=== PATIENT | female | born 1945 | race Caucasian/White ===

== ENCOUNTER 2017-07-09 10:42 | Emergency (ER) | payer MEDICARE ==
[~2017-07-09] VITALS: Ht 152.4 cm; Wt 75.0 kg
[2017-07-09 10:47] VITALS: BP 176/88; PULSE 100; RESP 16; TEMP 98; O2SAT 100
[2017-07-09] MEDS ORDERED: LOVA10TA PO (11:20)
--- NOTE | 2017-07-09 11:27 | PD ---
HPI Chief Complaint: Fall Time Seen by Provider: 11:10 Travel History International Travel<30 days: No Contact w/Intl Traveler<30days: No Traveled to known affect area: No History of Present Illness HPI This 72-year-old female says that she had a fall yesterday. She was walking and quite abruptly ended up on the ground. She does not think she had a syncopal episode. She does not think she had a seizure. He was able to get up and continue walking but she says she doesn't feel quite right today. She feels like she has a little bit "off". She is not having headache. She is on a statin. She has no history of stroke area she did not have any chest pain. She says she saw her doctor recently and had normal blood work at that time [facility] Past Surgical History Hysterectomy: Yes Social History Tobacco Use: No Allergies-Medications (Allergen,Severity, Reaction): Coded Allergies: No Known Allergies (Unverified , 07/09/17) Reported Meds & Prescriptions Reported Meds & Active Scripts Active Reported Lovastatin 10 Mg Tab 5 Mg PO DAILY Review of Systems General / Constitutional: No: Fever, Chills Eyes: No: Diploplia, Blurred Vision HENT: Positive: Lightheadedness, No: Headaches, Vertigo Cardiovascular: No: Chest Pain or Discomfort, Palpitations Respiratory: No: Cough, Shortness of Breath Gastrointestinal: No: Nausea, Vomiting Genitourinary: No: Urgency, Frequency Musculoskeletal: No: Myalgias Skin: No Rash Neurologic: No: Change in Mentation, Incontinence, Sensory Disturbance Psychiatric: No: Anxiety Hematologic/Lymphatic: No: Easy Bruising Physical Exam Narrative GENERAL: Well-developed female SKIN: Focused skin assessment warm/dry. HEAD: Atraumatic. Normocephalic. EYES: Pupils equal and round. No scleral icterus. No injection or drainage. ENT: No nasal bleeding or discharge. Mucous membranes pink and moist. NECK: Trachea midline. No JVD. CARDIOVASCULAR: Regular rate and rhythm. No murmur appreciated. RESPIRATORY: No accessory muscle use. Clear to auscultation. Breath sounds equal bilaterally. GASTROINTESTINAL: Abdomen soft, non-tender, nondistended. Hepatic and splenic margins not palpable. MUSCULOSKELETAL: No obvious deformities. No clubbing. No cyanosis. No edema. NEUROLOGICAL: Awake and alert. No obvious cranial nerve deficits. Motor grossly within normal limits. Normal speech. PSYCHIATRIC: Appropriate mood and affect; insight and judgment normal. Data Data Last Documented VS Vital Signs Date Time Temp Pulse Resp B/P (MAP) Pulse Ox O2 Delivery O2 Flow Rate FiO2 07/09/17 10:47 98.0 100 16 176/88 (117) [address] Brain W/O Iv Contrast(Rout) (07/09/17 11:20) MDM Medical Decision Making Medical Screen Exam Complete: Yes Emergency Medical Condition: Yes Medical Record Reviewed: Yes Differential Diagnosis Differential includes tumor, CVA, simple fall Narrative Course Patient is concerned she may have a tumor may have had a stroke causing the fall. CT scan has been done and is read as negative. I do not find any focal findings on examination. sHe is stable for discharge Diagnosis Primary Impression: Accident due to mechanical fall without injury Disposition: 01 DISCHARGE HOME Condition: Stable Thor Roberts MD Jul 09, 2017 11:26
--- NOTE | 2017-07-09 11:58 | RADRPT ---
EXAM DATE/TIME: 07/09/2017 11:34 [facility] COMPARISON: No previous studies available for comparison. INDICATIONS : Fall. Syncope. RADIATION DOSE: 59.39 CTDIvol (mGy) MEDICAL HISTORY : None SURGICAL HISTORY : Hysterectomy. Orthopedic surgery. ENCOUNTER: Initial ACUITY: 1 day PAIN SCALE: 0/10 LOCATION: cranial TECHNIQUE: Multiple contiguous axial images were obtained of the head. Using automated exposure control and adj ustment of the mA and/or kV according to patient size, radiation dose was kept as low as reasonably a chievable to obtain optimal diagnostic quality images. DICOM format image data is available electro nically for review and comparison. FINDINGS: CEREBRUM: The ventricles are normal for age. No evidence of midline shift, mass lesion, hemorrhage or acute in farction. No extra-axial fluid collections are seen. POSTERIOR FOSSA: The cerebellum and brainstem are intact. The 4th ventricle is midline. The cerebellopontine angle i s unremarkable. EXTRACRANIAL: The visualized portion of the orbits is intact. SKULL: The calvaria is intact. No evidence of skull fracture. CONCLUSION: Negative noncontrast head CT. Isaias Lockett MD on July 09, 2017 at 11:56 Board Certified Radiologist. This report was verified electronically.
== END 2017-07-09 12:15 | disposition home or self-care (01) ==
LOC: PHED 10:42
DX: Z04.3 Encounter for examination and observation following other accident (principal)
CPT/HCPCS: 70450; 99284